=== PATIENT | female | born 1980 ===

== ENCOUNTER 2019-09-18 12:25 | Outpatient (CLI) | payer OTHER ==
[2019-09-18 13:30] VITALS: BP 110/76
[2019-09-18] MEDS ORDERED: BUTALB/ACETAMINOPHEN/CAFFEINE TAB PO ONE (13:43)
[2019-09-18 14:25] LABS: Bilirubin,Urine NEG (Negative); Blood,Urine SM (Negative); Color,Urine Straw (Yellow); Protein,Urine <15 mg/dL mg/dL (Negative); Urobilinogen,Urine < 2.0 mg/dL (<2.0)
[2019-09-18 14:32] LABS: Bacteria,Urine 2+ /HPF (Negative); RBC,Urine < 1.0 /HPF (0.0-6.0); WBC,Urine < 1.0 /HPF (0.0-6.0)
[2019-09-18 14:40] LABS: Basophils % (Auto) 0.2 % (0.0-1.8); Eosinophils % (Auto) 0.3 % (0.0-4.3); Hemoglobin 12.2 gm/dl (10.1-14.3); Lymphocytes # (Auto) 1.2 K/mm3 (1.2-5.4); Lymphocytes % (Auto) 14.6 % (13.4-35.0); Monocytes # (Auto) 0.6 K/mm3 (0.0-0.8); Monocytes % (Auto) 7.2 % (0.0-7.3)
[2019-09-18 14:44] LABS: Hematocrit 35.8 % (30.3-42.9); Mean Corpuscular HGB Conc 34 % (30-34); Mean Corpuscular Volume 87 fl (79-97); Platelet Count 203 K/mm3 (140-440); Red Blood Count 4.12 M/mm3 (3.65-5.03); Red Cell Distribution Width 12.7 % (13.2-15.2)
[2019-09-18 15:03] LABS: Alanine Aminotransferase 10 units/L (7-56); Albumin 3.4 g/dL (3.9-5); BUN/Creatinine Ratio 20; Blood Urea Nitrogen 6 mg/dL (7-17); Calcium 10.1 mg/dL (8.4-10.2); Hemolysis Index 6
--- NOTE | 2019-09-18 15:44 | Progress Note ---
Assessment and Plan A: at 37 2/7 weeks gestation. Headache, possible migraine. Mild tachycardia. Not in labor. P: Labs done (urine culture pending). Fioricet given without relief of headache. Plan to discharge patient to ED to be further evaluated by ED doctor. Called ED and told them I was bringing patient over to ED by wheelchair. Patient refused to see ED doctor and signed out AMA. Risks of signing out AMA discussed with patient. Encouraged patient to come back if symptoms do not resolve or if any further symptoms. Subjective - Subjective Date of service: 09/18/19 Principal diagnosis: at 37 2/7 weeks gestation; headache Interval history: 39 year old presents at 37 2/7 weeks complaining of a throbbing headache on the right side of her head since about 09:00 this morning. Patient reports blurry vision in both eyes. She states pain on the right side of her head is 10/10. She denies falls or MVAs or trauma. She denies nausea or vomiting or abdominal pain. She denies exposure to any sick people or any recent travel. She denies diarrhea or cough or sore throat. She denies swelling. Patient reports active movement. She denies regular contractions, leaking of fluid or vaginal bleeding. She states she does not have any known health problems and has never had migraine headaches. She is not currently taking any medications. She denies any problems with this . She state she goes to [facility] and has an appointment there tomorrow for visit. Patient reports: movement normal, no loss of fluid, no vaginal bleeding, no contractions Objective - Vital Signs Vital Signs: Vital Signs - 12hr 09/18/19 09/18/19 09/18/19 12:43 12:48 12:53 Temperature 98.4 F Pulse Rate 104 H 107 H 105 H Blood Pressure 117/75 O2 Sat by Pulse 97 98 98 Oximetry 09/18/19 09/18/19 09/18/19 12:58 12:59 13:03 Temperature Pulse Rate 106 H 107 H 105 H Blood Pressure 106/68 O2 Sat by Pulse 98 98 Oximetry 09/18/19 09/18/19 09/18/19 13:08 13:13 13:15 Temperature Pulse Rate 109 H 102 H 110 H Blood Pressure 110/74 O2 Sat by Pulse 99 97 Oximetry 09/18/19 09/18/19 09/18/19 13:18 13:23 13:26 Temperature Pulse Rate 105 H 110 H 111 H Blood Pressure O2 Sat by Pulse 97 100 94 Oximetry 09/18/19 09/18/19 09/18/19 13:28 13:29 13:33 Temperature Pulse Rate 114 H 115 H 110 H Blood Pressure 110/76 O2 Sat by Pulse 96 92 Oximetry 09/18/19 09/18/19 09/18/19 13:34 13:38 13:39 Temperature Pulse Rate 104 H 102 H 109 H Blood Pressure O2 Sat by Pulse 93 83 L 94 Oximetry - Exam Narrative Exam: A&O, NAD. Talking clearly; answers questions appropriately. No swelling noted. Pulse 100-115 bpm, regular. Eyes PERRL. Moves all extremities well. 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 Normal and symmetrical motion in arms and legs. Symmetrical facial movements; symmetrical smile. Abdomen: Present: normal appearance, soft. Absent: distention, tenderness, guarding, rigidity Uterus: Present: normal, fundal height above umbilicus. Absent: tenderness FHR: category 1 Uterine Contraction Monitor Mode: External Cervical Dilatation: 0 Cervical Effacement Percentage: 0 station: high Uterine Contraction Pattern: Absent - Labs Labs: Abnormal Labs 09/18/19 09/18/19 09/18/19 13:53 14:14 14:14 RDW 12.7 L Seg Neutrophils % 77.7 H Sodium 134 L Carbon Dioxide 19 L BUN 6 L Creatinine 0.3 L Alkaline Phosphatase 170 H Albumin 3.4 L Urine pH 8.0 H Ur Specific Padroni 1.002 L Laboratory Results - last 24 hr 09/18/19 09/18/19 09/18/19 13:53 14:14 14:14 WBC 8.3 RBC 4.12 Hgb 12.2 Hct 35.8 MCV 87 MCH 30 MCHC 34 RDW 12.7 L Plt Count 203 Lymph % (Auto) 14.6 Geary % (Auto) 7.2 Eos % (Auto) 0.3 Baso % (Auto) 0.2 Lymph # 1.2 Geary # 0.6 Eos # 0.0 Baso # 0.0 Seg Neutrophils % 77.7 H Seg Neutrophils # 6.5 Sodium 134 L Potassium 3.9 Chloride 99.9 Carbon Dioxide 19 L Anion Gap 19 BUN 6 L Creatinine 0.3 L Estimated GFR > 60 BUN/Creatinine Ratio 20 Glucose 79 Calcium 10.1 Total Bilirubin 0.70 AST 16 ALT 10 Alkaline Phosphatase 170 H Total Protein 6.5 Albumin 3.4 L Albumin/Globulin Ratio 1.1 Urine Color Straw Urine Turbidity Clear Urine pH 8.0 H Ur Specific Padroni 1.002 L Urine Protein <15 mg/dl Urine Glucose (UA) Neg Urine Ketones Neg Urine Blood Sm Urine Nitrite Neg Urine Bilirubin Neg Urine Urobilinogen < 2.0 Ur Leukocyte Esterase Neg Urine WBC (Auto) < 1.0 Urine RBC (Auto) < 1.0 Urine Bacteria (Auto) 2+
== END 2019-09-18 15:32 | disposition home or self-care (01) ==
LOC: TRG 12:25
PROVIDERS: ATTEND Obstetrics & Gynecology
DX: O26.893 Other specified pregnancy related conditions, third trimester (principal); H53.8 Other visual disturbances; Z3A.37 37 weeks gestation of pregnancy
CPT/HCPCS: 36415; 80053; 81001; 85025; 87086

== ENCOUNTER 2019-10-12 08:11 | Inpatient (IN) | payer OTHER ==
[2019-10-12] MEDS ORDERED: OXYTOCIN 20 UNIT/1000ML DRIP 20 UNITS/1,000 ML BAG IV SCH (10:00)
[2019-10-12] MEDS ORDERED: LIDOCAINE (2%) 20 MG/1 ML VIAL 20 ML MDV INFILTRATI NR (10:00)
[2019-10-12] MEDS ORDERED: miSOPROStol 25 MCG TAB VG SCH (10:00)
[2019-10-12] MEDS ORDERED: TERBUTALINE 1 MG/1 ML INJ SUB-Q PRN (10:00)
[2019-10-12] MEDS ORDERED: ePHEDrine SULFATE 50 MG/1 ML INJ IV PRN (10:00)
[2019-10-12] MEDS ORDERED: NALOXONE 0.4 MG/1 ML INJ IV PRN (10:00)
[2019-10-12] MEDS ORDERED: TERBUTALINE 1 MG/1 ML INJ IVP PRN (10:00)
[2019-10-12] MEDS ORDERED: MINERAL OIL 30 ML ORAL LIQD PO PRN (10:00)
[2019-10-12 11:07] LABS: Hemoglobin 12.7 gm/dl (10.1-14.3); Mean Corpuscular HGB Conc 33 % (30-34); Mean Corpuscular Volume 88 fl (79-97); Platelet Count 164 K/mm3 (140-440); Red Blood Count 4.45 M/mm3 (3.65-5.03)
[2019-10-12] MEDS ORDERED: OXYTOCIN DRIP 30 UNITS/500 ML BAG IV SCH (13:00)
[2019-10-12] MEDS: LACTATED RINGERS 1,000 ML IV SCH ×2 (14:22→20:57)
--- NOTE | 2019-10-12 14:33 | History and Physical Report ---
History of Present Illness Date of examination: 10/12/19 Date of admission: 10/12/19 08:13 Chief complaint: Presents for a scheduled induction schedule History of present illness: Early entry to care, course complicated by Rheumatoid Arthritis; Co-managed with [facility]. Past History Past Medical History: other (Rheumatoid Arthritis ) Past Surgical History: other (hernia removed) Family/Genetic History: diabetes, hypertension Social history: no significant social history, - Obstetrical History Expected Date of Delivery: 10/10/19 Actual Gestation: 40 Week(s) 2 Day(s) : 4 Para: 2 Spontaneous Abortions: 1 Number of Living Children: 2 #1 Infant Gender: Female year: Birthweight: 3.345 kg Method of Delivery: Vaginal Gestational age at delivery: 39 Complications: none #2 Infant Gender: Male year: Birthweight: 2.948 kg Method of Delivery: Vaginal Gestational age at delivery: 41 Complications: none Medications and Allergies Allergies Allergy/AdvReac Type Severity Reaction Status Date / Time Penicillins Allergy Mild Rash Verified 09/18/19 13:47 Home Medications Medication Instructions Recorded Confirmed Last Taken Type Vitamin 1 tab PO DAILY 10/12/19 10/12/19 10/11/19 History Active Meds: Active Medications Butorphanol Tartrate (Stadol) 2 mg IV Q2H PRN PRN Reason: Labor Pain Ephedrine Sulfate (Ephedrine Sulfate) 10 mg IV Q2M PRN PRN Reason: Hypotension Oxytocin/Sodium Chloride (Pitocin/Ns 20 Unit/1000ml Drip) 20 units in 1,000 mls @ 125 mls/hr IV DIRECT TOMASA Lactated Ringer's (Lactated Ringers) 1,000 mls @ 125 mls/hr IV DIRECT TOMASA Last Admin: 10/12/19 14:22 Dose: 125 mls/hr Documented by: Oxytocin/Sodium Chloride (Pitocin/Ns 30 Unit/500ml) 30 units in 500 mls @ 4 m ls/hr IV TITR TOMASA; Protocol Last Admin: 10/12/19 14:23 Dose: 4 mls/hr, 4 mls/hr Documented by: Lidocaine (Xylocaine 2%) 20 ml INFILTRATI ONCE NR Stop: 10/13/19 09:59 Mineral Oil (Mineral Oil) 30 ml PO QHS PRN PRN Reason: Constipation Naloxone HCl (Naloxone) 0.1 mg IV Q2MIN PRN PRN Reason: Res Rate </= 8 or 02 SAT < 92% Ondansetron HCl (Zofran) 4 mg IV Q8H PRN PRN Reason: Nausea And Vomiting Terbutaline Sulfate (Brethine) 0.25 mg SUB-Q ONCE PRN PRN Reason: Hyperstimulation/Hypertonicity Terbutaline Sulfate (Brethine) 0.25 mg IVP ONCE PRN PRN Reason: Hyperstimulation/Hypertonicity Review of Systems All systems: negative - Vital Signs Vital signs: Vital Signs Temp Pulse Resp BP 97.8 F 112 H 18 122/67 10/12/19 08:36 10/12/19 08:36 10/12/19 08:36 10/12/19 08:36 Temp Pulse Resp BP Pulse Ox 98.0 F 109 H 18 125/70 10/12/19 12:03 10/12/19 14:27 10/12/19 12:03 10/12/19 14:27 - Physical Exam Breasts: Positive: normal Cardiovascular: Regular rate Lungs: Positive: Clear to auscultation, Normal air movement Abdomen: Positive: normal appearance, soft, normal bowel sounds Genitourinary (Female): Positive: normal external genitalia, normal perenium Vagina: Positive: normal moisture Uterus: Positive: enlarged Anus/Rectum: Positive: normal perianal skin Extremities: Positive: edema (+1) - Obstetrical FHR: category 1 Uterine Contraction Monitor Mode: External Cervical Dilatation: 3 (VTX, Intact) Cervical Effacement Percentage: 70 station: -2 Uterine Contraction Pattern: Irregular Uterine Tone Measurement Phase: Resting Uterine Contraction Intensity: Mild Results Result Diagrams: 10/12/19 10:20 Abnormal lab results 10/12/19 Range/Units 10:20 RDW 13.0 L (13.2-15.2) % All other labs normal. Assessment and Plan A: IUP @ 40 2/7 Weeks Category I Tracing AMA Rheumatoid Arthritis GBS Negative P: Admit to L&D per Routine Orders Cytotec Induction Pitocin Augmentation
--- NOTE | 2019-10-12 15:07 | Progress Note ---
Assessment and Plan A: IUP @ 40 2/7 Weeks Bradycardia (resolved) Category I Tracing AMA Rheumatoid Arthritis GBS Negative P: D/C Pitocin Dr. Hollingsworth called to Bedside Multiple Maternal Positions Changes O2 Mask Fluid Bolous AROM Internals x 2 Re-start pitocin in 45mins to 1 hour; if FHTs remain stable Subjective - Subjective Date of service: 10/12/19 Interval history: Early entry to care, course complicated by Rheumatoid Arthritis; Co-managed with [facility]. Objective - Vital Signs Vital Signs: Vital Signs - 12hr 10/12/19 10/12/19 10/12/19 08:36 12:03 12:05 Temperature 97.8 F 98.0 F Pulse Rate 112 H 90 90 Respiratory 18 18 Rate Blood Pressure 122/67 111/65 Blood Pressure 122/67 [Left] Blood Pressure 111/65 [Right] O2 Sat by Pulse Oximetry 10/12/19 10/12/19 14:27 14:40 Temperature Pulse Rate 109 H 117 H Respiratory Rate Blood Pressure 125/70 Blood Pressure [Left] Blood Pressure [Right] O2 Sat by Pulse 100 Oximetry - Exam Breasts: normal Cardiovascular: Regular rate Abdomen: Present: normal appearance, soft, normal bowel sounds Uterus: Present: normal, firm FHR: category 1 FHR comments: Infant had a bradycardia down to the 60s soon after Pitocin was started. O2 face mask placed; fluid bolous started; AROM and internals placed x2, patient pu t in the knee chest position, and Dr. Hollingsworth called to bedside. FHTs returned to Category I Tracing Uterine Contraction Monitor Mode: Internal Cervical Dilatation: 3 (Moderate amount of clear fluid upon AROM at 1440) Cervical Effacement Percentage: 70 station: -2 Uterine Contraction Pattern: Irregular Uterine Tone Measurement Phase: Resting Uterine Contraction Intensity: Moderate Extremities: edema - Labs Labs: Abnormal Labs 10/12/19 10:20 RDW 13.0 L Laboratory Results - last 24 hr 10/12/19 10/12/19 10:15 10:20 WBC 8.1 RBC 4.45 Hgb 12.7 Hct 39.0 MCV 88 MCH 29 MCHC 33 RDW 13.0 L Plt Count 164 Blood Type B POSITIVE Antibody Screen Negative
[2019-10-12] MEDS: ONDANSETRON 4 MG/2 ML INJ IV PRN ×2 (17:16→20:35)
[2019-10-12] MEDS: BUTORPHANOL 2 MG/1 ML INJ IV PRN ×2 (17:16→20:35)
--- NOTE | 2019-10-12 18:23 | Progress Note ---
Assessment and Plan A: IUP @ 40 2/7 Weeks Category I Tracing AMA Rheumatoid Arthritis GBS Negative P: Continue Pitocin Augmentation Multiple Maternal Positions Changes Subjective - Subjective Date of service: 10/12/19 Interval history: Early entry to care, course complicated by Rheumatoid Arthritis; Co-managed with [facility]. Patient reports: movement normal, contractions Objective - Vital Signs Vital Signs: Vital Signs - 12hr 10/12/19 10/12/19 10/12/19 08:36 12:03 12:05 Temperature 97.8 F 98.0 F Pulse Rate 112 H 90 90 Respiratory 18 18 Rate Blood Pressure 122/67 111/65 Blood Pressure 122/67 [Left] Blood Pressure 111/65 [Right] O2 Sat by Pulse Oximetry 10/12/19 10/12/19 10/12/19 14:27 14:40 15:26 Temperature Pulse Rate 109 H 117 H 82 Respiratory Rate Blood Pressure 125/70 110/56 Blood Pressure [Left] Blood Pressure [Right] O2 Sat by Pulse 100 Oximetry 10/12/19 10/12/19 10/12/19 15:41 15:46 15:51 Temperature Pulse Rate 96 H 94 H 94 H Respiratory Rate Blood Pressure Blood Pressure [Left] Blood Pressure [Right] O2 Sat by Pulse 99 98 99 Oximetry 10/12/19 10/12/19 10/12/19 15:56 16:01 16:06 Temperature Pulse Rate 99 H 95 H 98 H Respiratory Rate Blood Pressure Blood Pressure [Left] Blood Pressure [Right] O2 Sat by Pulse 99 100 99 Oximetry 10/12/19 10/12/19 10/12/19 16:11 16:16 16:21 Temperature Pulse Rate 107 H 100 H 98 H Respiratory Rate Blood Pressure Blood Pressure [Left] Blood Pressure [Right] O2 Sat by Pulse 99 99 99 Oximetry 10/12/19 10/12/19 10/12/19 16:29 16:34 16:39 Temperature Pulse Rate 104 H 91 H 84 Respiratory Rate Blood Pressure Blood Pressure [Left] Blood Pressure [Right] O2 Sat by Pulse 99 100 99 Oximetry 10/12/19 10/12/19 10/12/19 16:44 16:49 16:54 Temperature Pulse Rate 92 H 103 H 105 H Respiratory Rate Blood Pressure Blood Pressure [Left] Blood Pressure [Right] O2 Sat by Pulse 98 98 99 Oximetry 10/12/19 10/12/1910/12/20 16:59 17:04 17:09 Temperature Pulse Rate 99 H 99 H 99 H Respiratory Rate Blood Pressure Blood Pressure [Left] Blood Pressure [Right] O2 Sat by Pulse 99 99 97 Oximetry 10/12/19 10/12/19 10/12/19 17:14 17:19 17:24 Temperature Pulse Rate 95 H 107 H 103 H Respiratory Rate Blood Pressure Blood Pressure [Left] Blood Pressure [Right] O2 Sat by Pulse 97 98 96 Oximetry 10/12/19 10/12/19 10/12/19 17:29 17:33 17:34 Temperature Pulse Rate 105 H 114 H 100 H Respiratory Rate Blood Pressure Blood Pressure [Left] Blood Pressure [Right] O2 Sat by Pulse 96 94 96 Oximetry 10/12/19 10/12/19 10/12/19 17:39 17:44 17:49 Temperature Pulse Rate 107 H 101 H 114 H Respiratory Rate Blood Pressure Blood Pressure [Left] Blood Pressure [Right] O2 Sat by Pulse 97 96 95 Oximetry 10/12/19 10/12/19 10/12/19 17:54 17:59 18:04 Temperature Pulse Rate 110 H 110 H 106 H Respiratory Rate Blood Pressure Blood Pressure [Left] Blood Pressure [Right] O2 Sat by Pulse 96 98 95 Oximetry 10/12/19 18:06 Temperature Pulse Rate 122 H Respiratory Rate Blood Pressure Blood Pressure [Left] Blood Pressure [Right] O2 Sat by Pulse 94 Oximetry - Exam Breasts: normal Cardiovascular: Regular rate Lungs: Clear to auscultation, Normal air movement Abdomen: Present: normal appearance, soft, normal bowel sounds Uterus: Present: normal, firm, fundal height above umbilicus FHR: category 1 Uterine Contraction Monitor Mode: External Cervical Dilatation: 3 (leaking a small amount of clear fluid) Cervical Effacement Percentage: 80 station: -2 Uterine Contraction Frequency (min): 3 Uterine Contraction Pattern: Regular Uterine Tone Measurement Phase: Resting Uterine Contraction Intensity: Moderate Extremities: edema - Labs Labs: Abnormal Labs 10/12/19 10:20 RDW 13.0 L Laboratory Results - last 24 hr 10/12/19 10/12/19 10:15 10:20 WBC 8.1 RBC 4.45 Hgb 12.7 Hct 39.0 MCV 88 MCH 29 MCHC 33 RDW 13.0 L Plt Count 164 Blood Type B POSITIVE Antibody Screen Negative
[2019-10-12] MEDS ORDERED: diphenhydrAMINE 25 MG CAP PO PRN (23:32)
--- NOTE | 2019-10-12 23:39 | Procedure Note ---
OB Delivery Note - Delivery Date of Delivery: 10/12/19 (2312) Surgeon: DANA ENRIQUEZ Estimated blood loss: 200cc - Vaginal Delivery presentation: vertex Delivery position: OA Intrapartum events: extend. bradycardia Delivery induction: misoprostol Delivery augmentation: rupture of membranes, pitocin Delivery monitor: internal FHT, internal uterine Route of delivery: Delivery placenta: spontaneous Delivery cord: 3 umbilical vessels Delivery laceration: none Anesthesia: none Delivery comments: of a live 8'11 male over a intact perineum under IV pain control with Apgars of 8 and 9 at 2312 on 10/12/2019. Infant directly to maternal abd/chest, skin to skin contact. Spontaneous delivery of placenta complete and intact with Rahman side presenting at 2319. Fundus is firm and midline located 3 below the U. Lochia is scant. Delayed cord clamping and cutting; cord cut by the Father of the Baby. - A at 1 minute: 8 at 5 minutes: 9 Gender: Male (8'11)
[2019-10-12] MEDS: HYDROcodone/ACETAMINOPHEN 5-325 MG TAB PO PRN (23:40)
[2019-10-13] MEDS: IBUPROFEN 600 MG TAB PO SCH ×3 (05:35→23:53)
--- NOTE | 2019-10-13 10:33 | Progress Note ---
Assessment and Plan A: PP Day #1 Stable P: Follow Routine Orders Depo Provera 150mg IM prior to discharge RTO in 3 Weeks for a Sterilization Consult D/C Home in the AM Subjective - Subjective Date of service: 10/13/19 Interval history: Early entry to care, course complicated by Rheumatoid Arthritis; Co-managed with [facility]. Patient reports: appetite normal, voiding normally, pain well controlled, flatus, ambulating normally : doing well, bottle feeding (and ) Objective - Vital Signs Latest vital signs: Vital Signs Temp Pulse Resp BP BP Pulse Ox 10/13/19 08:34 97.9 F 89 20 109/58 97 10/13/19 04:44 98.2 F 103 H 20 108/65 93 10/13/19 00:35 99.6 F 100 H 18 118/66 97 10/13/19 00:12 109 H 124/62 10/12/19 23:57 116 H 123/73 10/12/19 23:26 113 H 134/62 10/12/19 22:26 110 H 125/69 10/12/19 21:28 85 130/65 10/12/19 20:27 98 H 117/57 10/12/19 19:27 103 H 145/80 10/12/19 19:00 97.4 F L 10/12/19 18:27 98.0 F 91 H 116/56 10/12/19 18:06 122 H 94 10/12/19 18:04 106 H 95 10/12/19 17:59 110 H 98 10/12/19 17:54 110 H 96 10/12/19 17:49 114 H 95 10/12/19 17:44 101 H 96 10/12/19 17:39 107 H 97 10/12/19 17:34 100 H 96 10/12/19 17:33 114 H 94 10/12/19 17:29 105 H 96 10/12/19 17:24 103 H 96 10/12/19 17:19 107 H 98 10/12/19 17:14 95 H 97 10/12/19 17:09 99 H 97 10/12/19 17:04 99 H 99 10/12/19 16:59 99 H 99 10/12/19 16:54 105 H 99 10/12/19 16:49 103 H 98 10/12/19 16:44 92 H 98 02/26/20 16:39 84 99 10/12/19 16:34 91 H 100 10/12/19 16:29 104 H 99 10/12/19 16:21 98 H 99 10/12/19 16:16 100 H 99 10/12/19 16:11 107 H 99 10/12/19 16:06 98 H 99 10/12/19 16:01 95 H 100 10/12/19 15:56 99 H 99 10/12/19 15:51 94 H 99 10/12/19 15:46 94 H 98 10/12/19 15:41 96 H 99 10/12/19 15:26 82 110/56 10/12/19 14:40 117 H 100 10/12/19 14:27 109 H 125/70 10/12/19 12:05 90 111/65 10/12/19 12:03 98.0 F 90 18 111/65 Intake and Output 10/12/19 10/13/19 10/13/19 22:59 06:59 14:59 Intake Total 816.417 120 Output Total 600 Balance 816.417 -480 Intake: IV 816.417 Lactated Ringers 1,000 ml 766.667 @ 125 mls/hr IV DIRECT TOMASA Rx#:[id number] Left Wrist 10 PITOCin/NS 30 UNIT/500ML 39.750 30 units In 500 ml @ 4 mls/hr IV TITR TOMASA Rx#: [id number] Oral 120 Output: Urine 600 Void 600 Other: Total, Intake Amount 120 Total, Output Amount 600 # Voids Void 1 - Exam Breasts: Present: normal Cardiovascular: Present: Regular rate Lungs: Present: Clear to auscultation, Normal air movement Abdomen: Present: normal appearance, soft, normal bowel sounds Uterus: Present: normal, firm, fundal height below umbilicus Extremities: Present: normal - Labs Labs: Abnormal lab results 10/12/19 Range/Units 10:20 RDW 13.0 L (13.2-15.2) %
--- NOTE | 2019-10-13 10:35 | Discharge Summary ---
Providers - Providers Date of Admission: 10/12/19 08:13 Date of discharge: 10/14/19 Attending physician: HOLLIS TAYLOR MD Primary care physician: HOLLIS TAYLOR MD Hospitalization Reason for admission: induction of labor Delivery: Episiotomy: none Laceration: none Other procedures: none complications: none Discharge diagnosis: IUP at term delivered [place] baby: male Condition at discharge: Poor Disposition: DC-01 TO HOME OR SELFCARE Plan - Provider Discharge Summary Activity: routine, no sex for 6 weeks, no heavy lifting 4 weeks, no strenuous exercise Diet: routine Instructions: routine Additional instructions: [] Smoking cessation referral if applicable(refer to patient education folder for contact #) [] Refer to [facility] Booklet Call your doctor immediately for: * Fever > 100.5 * Heavy vaginal bleeding ( >1 pad per hour) * Severe persistent headache * Shortness of breath * Reddened, hot, painful area to leg or breast * Drainage or odor from incision. * Keep incision clean and dry at all times and follow doctor's instructions regarding bathing/showering - Follow up plan Follow up: HOLLIS TAYLOR MD [Primary Care Provider] - 10/27/19
[2019-10-13] MEDS ORDERED: medroxyPROGESTERone ACETATE 150 MG/ML SYRINGE IM SCH (11:00)
[2019-10-13 14:26] LABS: Hemoglobin 12.1 gm/dl (10.1-14.3)
[2019-10-13] MEDS: PRENATAL VIT27-FE FUMARATE-FOLIC ACID VIT TAB PO SCH (14:32)
[2019-10-14] MEDS: IBUPROFEN 600 MG TAB PO SCH ×2 (06:10→13:35)
[2019-10-14 09:35] VITALS: BP 123/81
[2019-10-14] MEDS: PRENATAL VIT27-FE FUMARATE-FOLIC ACID VIT TAB PO SCH (13:34)
[2019-10-14] MEDS: HYDROcodone/ACETAMINOPHEN 5-325 MG TAB PO PRN (13:34)
== END 2019-10-14 16:28 | disposition home or self-care (01) | DRG 807 ==
LOC: TRG 08:11 → LD 08:13 → OB 10-13 00:43
PROVIDERS: ADMIT Obstetrics & Gynecology; ATTEND Obstetrics & Gynecology
PROC: 10E0XZZ Delivery of Products of Conception, External Approach (ICD-10-PCS; principal; 2019-10-12)
DX: O76 Abnormality in fetal heart rate and rhythm complicating labor and delivery (principal); Z37.0 Single live birth; Z3A.40 40 weeks gestation of pregnancy; Z83.3 Family history of diabetes mellitus; Z82.49 Family history of ischemic heart disease and other diseases of the circulatory system; Z88.0 Allergy status to penicillin; M06.9 Rheumatoid arthritis, unspecified; O99.89 Other specified diseases and conditions complicating pregnancy, childbirth and the puerperium
CPT/HCPCS: 36415; 85014; 85018; 85027; 86850; 86900; 86901; G0378; J0595; J1050; J2405; J2590; J7120